=== PATIENT | male | born 1945 | race Caucasian/White ===

== ENCOUNTER 2017-11-11 18:51 | Emergency (ER) | payer MEDICARE, OTHER ==
[2017-11-11] MEDS ORDERED: Amoxicillin/Clavulanate TAB* 875 MG PO ONE (20:34)
--- NOTE | 2017-11-11 20:34 | ED ---
Skin Complaint - HPI Summary HPI Summary: 71-year-old male presents with redness to his right hand since yesterday. He states he got bite by his dog 2 days ago. He states that the dog got confuses as he was wearing a CPAP machine. His dog is up-to-date on his immunizations. His tetanus is up-to-date. He is not diabetic. He has redness and swelling on the dorsum of his right hand. has full ROM of his hand. Bite was in between his right thumb and index finger. He cleaned the area out with peroxide and soap and water. He denies any fevers. - History of Current Complaint Chief Complaint: EDAnimalBite Time Seen by Provider: 11/11/17 20:07 Stated Complaint: DOG BITE 2 DAYS AGO Pain Intensity: 0 - Allergy/Home Medications Allergies/Adverse Reactions: Allergies Allergy/AdvReac Type Severity Reaction Status Date / Time No Known Allergies Allergy Verified 11/11/17 19:03 PMH/Surg Hx/FS Hx/Imm Hx Endocrine/Hematology History: Denies: Hx Anticoagulant Therapy, Hx Diabetes Cardiovascular History: Reports: Hx Hypertension Infectious Disease History: No Infectious Disease History: Denies: Traveled Outside the [place] in Last 30 Days - Family History Known Family History: Positive: Hypertension - Social History Alcohol Use: Occasionally Substance Use Type: Reports: None Smoking Status (MU): Former Smoker Review of Systems Negative: Fever Negative: Chest Pain Negative: Shortness Of Breath Positive: Rash All Other Systems Reviewed And Are Negative: Yes Physical Exam Triage Information Reviewed: Yes Vital Signs On Initial Exam: Initial Vitals Temp Pulse Resp BP Pulse Ox 98.5 F 79 18 118/72 95 11/11/17 19:00 11/11/17 19:00 11/11/17 19:00 11/11/17 19:00 11/11/17 19:00 Vital Signs Reviewed: Yes Appearance: Positive: Well-Appearing Skin: Positive: Warm, Dry, Other - puncture wound right dorsum hand near scaphoid bone and one on palmar aspect, with edema and erythema on dorsum of palm Head/Face: Positive: Normal Head/Face Inspection Eyes: Positive: Normal, Conjunctiva Clear ENT: Positive: Pharynx normal Respiratory/Lung Sounds: Positive: Clear to Auscultation, Breath Sounds Present Cardiovascular: Positive: Normal, RRR Musculoskeletal: Positive: Strength/ROM Intact - right hand, Other - nontender over tendon sheath, good pulses, capillary refill<2 secs Neurological: Positive: Normal Psychiatric: Positive: Normal Diagnostics - Vital Signs Vital Signs Temp Pulse Resp BP Pulse Ox 11/11/17 19:00 98.5 F 79 18 118/72 95 - Laboratory Lab Statement: Any lab studies that have been ordered have been reviewed, and results considered in the medical decision making process. Course/Dx - Course Course Of Treatment: 71-year-old male presents with redness to his right hand since yesterday. He states he got bite by his dog 2 days ago. He states that the dog got confuses as he was wearing a CPAP machine. His dog is up-to-date on his immunizations. His tetanus is up-to-date. He is not diabetic. He has redness and swelling on the dorsum of his right hand. has full ROM of his hand. Bite was in between his right thumb and index finger. He cleaned the area out with peroxide and soap and water. He denies any fevers. on exam has puncture wound on palmar and dorsum of right hand. edema and erythema on dorsum of hand. neurovascular intact and full ROM of hand. no evidence of tenosynovitis. will place on augmentin. warned of signs to return to ED and told that have low threshold to return to ED. patient understand dagrees with plan. - Differential Diagnoses - Skin Complaint Differential Diagnoses: Abscess, Cellulitis, Contact Dermatitis - Diagnoses Provider Diagnoses: Cellulitis of right hand Discharge - Sign-Out/Discharge Documenting (check all that apply): Patient Departure - Discharge Plan Condition: Good Disposition: HOME Prescriptions: Amoxicillin/Clavulanate TAB* [Augmentin TAB 875*] 875 mg PO BID #19 tab Patient Education Materials: Cellulitis (ED) Referrals: No Primary Care Phys,NOPCP [Primary Care Provider] - Additional Instructions: take augmentin twice a day for 10 dayss Ice, elevate Take Tylenol every 6 hours as needed Follow up with primary Return to ED if develop fever, spreading redness, or any new or worsening symptoms - Billing Disposition and Condition Condition: GOOD Disposition: Home
[2017-11-11 20:56] VITALS: BP 120/76
== END 2017-11-11 20:55 | disposition home or self-care (01) ==
LOC: ED 18:51
DX: L03.113 Cellulitis of right upper limb (principal); R21 Rash and other nonspecific skin eruption; Z87.891 Personal history of nicotine dependence
CPT/HCPCS: 99282; A9270-GY

== ENCOUNTER 2018-12-11 09:01 | Emergency (ER) | payer MEDICARE ==
[2018-12-11 10:19] LABS: ABS Basophils 0.2 10^3/ul (0-0.2); ABS Eosinophils 0.3 10^3/ul (0-0.6); ABS Lymphocytes 1.3 10^3/ul (1.0-4.8); ABS Neutrophils 7.5 10^3/ul (1.5-7.7); Eosinophil % 3.1 %; Hematocrit 38 % (42-52); Hemoglobin 13.1 g/dL (14.0-18.0); Lymphocyte % 12.4 %; Mean Corpuscular HGB Conc 34 g/dL (31-36); Mean Corpuscular Hemoglobin 30 pg (27-31); Mean Corpuscular Volume 88 fL (80-94); Mean Platelet Volume 6.9 fL (7.4-10.4); Platelet Count 277 10^3/uL (150-450); Red Blood Count 4.33 10^6 /uL (4.18-5.48); Red Cell Distribution Width 13 % (10-15); White Blood Count 10.4 10^3/uL (3.5-10.8)
[2018-12-11 10:40] LABS: Albumin 4.2 g/dL (3.2-5.2); Albumin/Globulin Ratio 1.7 (1-3); BUN/Creatinine Ratio 21.4 (8-20); C Reactive Protein 15.54 mg/L (<8.01); Calcium 9.3 mg/dL (8.6-10.3); EGFR African American 108.7 (>60); EGFR Non-African American 89.8 (>60); Globulin 2.5 g/dL (2-4); Potassium 3.8 mmol/L (3.5-5.0); Total Bilirubin 0.7 mg/dL (0.2-1.0); Total Protein 6.7 g/dL (6.4-8.9)
--- NOTE | 2018-12-11 12:48 | ED ---
Psychiatric Complaint - HPI Summary HPI Summary: This patient is a 72-year-old male with a history of dementia presenting to the ED with after becoming violent last evening. Patient's states his dementia has been worsening slowly, however he has never acted out to this degree. He was throwing things, scratching at the mattress and aggressive behavior towards their family dog. On arrival into the ED, the patient appears very agitated and confused. Social Work Note: contacted by PERCY Grullon re: patient being in ED and 's concerns. Per Yadi, patient became verbally aggressive towards and Chihuahua at home. He began to yell, scream, throw things, and attempted to throw blanket on Chihuahua. SW met with patient, , and daughter. Patient does exhibit confusion. He stated he cam eto ED due to being angry and mean, but could not recall how or why. Per , he has dementia. SW discussed wishes with family. Family wishing to have patient admitted over night for monitoring. At this time, family had decided to take patient to [facility] for evaluation due to having doctors that are familiar with him at this hospital. Team in agreeance with this plan. - History Of Current Complaint Chief Complaint: EDPsychosocial Time Seen by Provider: 12/11/18 09:03 Hx Obtained From: Patient Onset/Duration: Sudden Onset Timing: Constant Severity Initially: Moderate Severity Currently: Moderate Character: Frustrated Associated Signs And Symptoms: Positive: Sleep Disturbance - Allergies/Home Medications Allergies/Adverse Reactions: Allergies Allergy/AdvReac Type Severity Reaction Status Date / Time No Known Allergies Allergy Verified 12/11/18 09:10 Home Medications: Home Medications Aspirin EC TAB* [Ecotrin EC Low Dose 81 MG*] 81 mg PO DAILY 12/11/18 [History Confirmed 12/11/18] Enalapril Maleate 2.5 mg PO DAILY 12/11/18 [History Confirmed 12/11/18] Fluticasone NASAL SPRAY 50MCG* [Flonase NASAL SPRAY 50MCG*] 2 spray BOTH NARES DAILY 12/11/18 [History Confirmed 12/11/18] Multivitamins/Minerals TAB* [Theragran/minerals TAB*] 1 tab PO DAILY 12/11/18 [ History Confirmed 12/11/18] traZODone TAB* [Desyrel TAB*] 50 mg PO BEDTIME 12/11/18 [History Confirmed 12/11] PMH/Surg Hx/FS Hx/Imm Hx Previously Healthy: Yes Endocrine/Hematology History: Denies: Hx Anticoagulant Therapy, Hx Diabetes Cardiovascular History: Reports: Hx Hypertension - Surgical History Surgery Procedure, Year, and Place: hernia repair - Immunization History Hx Pertussis Vaccination: No Immunizations Up to Date: Yes Infectious Disease History: No Infectious Disease History: Denies: Traveled Outside the [place] in Last 30 Days - Family History Known Family History: Positive: Hypertension - Social History Occupation: Unemployed Lives: With Family Alcohol Use: Occasionally Hx Substance Use: No Substance Use Type: Reports: None Hx Tobacco Use: No Smoking Status (MU): Former Smoker Review of Systems Constitutional: Negative Negative: Fever, Chills, Fatigue, Skin Diaphoresis Negative: Palpitations, Chest Pain Negative: Shortness Of Breath, Cough Negative: Abdominal Pain, Vomiting, Diarrhea, Nausea Genitourinary: Negative Positive: no symptoms reported, see HPI Negative: Arthralgia, Myalgia Skin: Negative Positive: Other - frustrated behavior All Other Systems Reviewed And Are Negative: Yes Physical Exam Triage Information Reviewed: Yes Vital Signs On Initial Exam: Initial Vitals Temp Pulse Resp BP Pulse Ox 98.5 F 67 17 189/104 98 12/11/18 09:03 12/11/18 09:03 12/11/18 09:03 12/11/18 09:03 12/11/18 09:03 Vital Signs Reviewed: Yes Appearance: Positive: Well-Appearing, Well-Nourished Skin: Positive: Warm, Skin Color Reflects Adequate Perfusion Head/Face: Positive: Normal Head/Face Inspection Eyes: Positive: EOMI, GUY, Conjunctiva Clear Neck: Positive: Supple, No Lymphadenopathy Respiratory/Lung Sounds: Positive: Clear to Auscultation, Breath Sounds Present Cardiovascular: Positive: RRR, Pulses are Symmetrical in both Upper and Lower Extremities Musculoskeletal: Positive: Normal Neurological: Positive: Other - confused/demented Psychiatric: Positive: Patient Uncooperative for Exam AVPU Assessment: Alert Diagnostics - Vital Signs Vital Signs Temp Pulse Resp BP Pulse Ox 12/11/18 12:04 70 181/109 97 12/11/18 12:00 68 98 12/11/18 11:38 68 98 12/11/18 11:36 68 169/108 97 12/11/18 10:44 71 98 12/11/18 09:34 68 170/106 98 12/11/18 09:20 179/107 12/11/18 09:08 69 184/104 97 12/11/18 09:04 69 189/104 97 12/11/18 09:03 98.5 F 67 17 189/104 98 - Laboratory Lab Results: Lab Results 12/11/18 12/11/18 12/11/18 Range/Units 10:06 10:06 10:06 WBC 10.4 (3.5-10.8) 10^3/uL RBC 4.33 (4.18-5.48) 10^6 /uL Hgb 13.1 L (14.0-18.0) g/dL Hct 38 L (42-52) % MCV 88 (80-94) fL MCH 30 (27-31) pg MCHC 34 (31-36) g/dL RDW 13 (10-15) % Plt Count 277 (150-450) 10^3/uL MPV 6.9 L (7.4-10.4) fL Neut % (Auto) 72.7 % Lymph % (Auto) 12.4 % [place] % (Auto) 9.6 % Eos % (Auto) 3.1 % Baso % (Auto) 2.2 % Absolute Neuts (auto) 7.5 (1.5-7.7) 10^3/ul Absolute Lymphs (auto) 1.3 (1.0-4.8) 10^3/ul Absolute Monos (auto) 1.0 H (0-0.8) 10^3/ul Absolute Eos (auto) 0.3 (0-0.6) 10^3/ul Absolute Basos (auto) 0.2 (0-0.2) 10^3/ul Absolute Nucleated RBC 0.0 10^3/ul Nucleated RBC % 0.0 Sodium 139 (135-145) mmol/L Potassium 3.8 (3.5-5.0) mmol/L Chloride 106 (101-111) mmol/L Carbon Dioxide 26 (22-32) mmol/L Anion Gap 7 (2-11) mmol/L BUN 18 (6-24) mg/dL Creatinine 0.84 (0.67-1.17) mg/dL Est GFR ( Amer) 108.7 (>60) Est GFR (Non-Af Amer) 89.8 (>60) BUN/Creatinine Ratio 21.4 H (8-20) Glucose 102 H (70-100) mg/dL Lactic Acid 0.7 (0.5-2.0) mmol/L Calcium 9.3 (8.6-10.3) mg/dL Total Bilirubin 0.70 (0.2-1.0) mg/dL AST 23 (13-39) U/L ALT 20 (7-52) U/L Alkaline Phosphatase 65 (34-104) U/L Troponin I 0.00 (<0.04) ng/mL C-Reactive Protein 15.54 H (<8.01) mg/L Total Protein 6.7 (6.4-8.9) g/dL Albumin 4.2 (3.2-5.2) g/dL Globulin 2.5 (2-4) g/dL Albumin/Globulin Ratio 1.7 (1-3) Result Diagrams: 12/11/18 10:06 12/11/18 10:06 Lab Statement: Any lab studies that have been ordered have been reviewed, and results considered in the medical decision making process. Course/Dx - Course Course Of Treatment: During the course of treatment, the patient is evaluated for worsening dementia and aggressive behaviors. states "I just want him admitted for 72 hours then I will take him home." She states she would just like a rest at home and does not look comfortable taking him home at this time. Offered longterm admission. Labs obtained and are unremarkable. CT brain obtained and is also unremarkable. No reason medically to admit him to [facility]. I have offered admission for placement to nursing care facility, however they have refused this as it would like to eventually take him home. Discussed case with Dr. Yoder, psychiatrist who recommends Seroquel 25 mg at bedtime for his symptoms. He will discontinue trazodone. Family at bedside states they will drive up to the [facility] in [place] for further evaluation. - Differential Dx/Clinical Impression Differential Diagnosis/HQI/PQRI: Positive: Other - dementia, aggressive behavior Provider Diagnosis: Aggressive behavior of adult, Dementia Discharge ED - Sign-Out/Discharge Documenting (check all that apply): Patient Departure Patient Received Moderate/Deep Sedation with Procedure: No - Discharge Plan Condition: Stable Disposition: HOME Referrals: Moukala-Cadet,Candi, DO [Primary Care Provider] - Additional Instructions: As discussed, I recommend Seroquel at bedtime Discontinue use of Trazodone Go directly to the [facility] in [place] - Billing Disposition and Condition Condition: STABLE Disposition: Home
[2018-12-11 13:09] VITALS: BP 172/110
== END 2018-12-11 12:47 | disposition home or self-care (01) ==
LOC: ED 09:01
DX: R45.6 Violent behavior (principal); F03.90 Unspecified dementia, unspecified severity, without behavioral disturbance, psychotic disturbance, mood disturbance, and anxiety; I10 Essential (primary) hypertension; Z87.891 Personal history of nicotine dependence; Z79.82 Long term (current) use of aspirin; Z79.899 Other long term (current) drug therapy
CPT/HCPCS: 36415; 70450; 80053; 83605; 84484; 85025; 86140; 93005; 99283